=== PATIENT | male | born 1945 | race Caucasian/White ===

== ENCOUNTER → 2022-11-21 09:19 | Outpatient (BNVA) | payer MEDICARE, SELFPAY | PROVIDERS: PCP Family Medicine; Visit Provider Family Medicine | DX: R73.9 Hyperglycemia, unspecified (principal); N52.9 Male erectile dysfunction, unspecified; E78.5 Hyperlipidemia, unspecified; I10 Essential (primary) hypertension | CPT/HCPCS: 80053; 80061; 83036; 84439; 84443; 85025 ==

== ENCOUNTER → 2023-02-21 15:06 | Outpatient (BNVA) | payer MEDICARE, SELFPAY | PROVIDERS: PCP Family Medicine; Referring Provider Family Medicine; Visit Provider Dermatology | DX: C44.629 Squamous cell carcinoma of skin of left upper limb, including shoulder (principal); L81.9 Disorder of pigmentation, unspecified; L57.0 Actinic keratosis; L81.4 Other melanin hyperpigmentation; L57.8 Other skin changes due to chronic exposure to nonionizing radiation; Z85.828 Personal history of other malignant neoplasm of skin | CPT/HCPCS: 11102; 11103; 17000; 17003; 99203 ==

== ENCOUNTER → 2023-03-08 14:01 | Outpatient (BNVA) | payer MEDICARE, SELFPAY | PROVIDERS: PCP Family Medicine; Visit Provider Family Medicine | DX: M79.652 Pain in left thigh (principal) | CPT/HCPCS: 73502; 73552 ==

== ENCOUNTER → 2023-03-29 09:12 | Outpatient (BNVA) | payer MEDICARE, SELFPAY | PROVIDERS: PCP Family Medicine; Visit Provider Dermatology | DX: C44.629 Squamous cell carcinoma of skin of left upper limb, including shoulder (principal) | CPT/HCPCS: 11602; 12032 ==

== ENCOUNTER → 2023-03-30 10:40 | Outpatient (BNVA) | payer MEDICARE, SELFPAY | PROVIDERS: PCP Family Medicine; Referring Provider Family Medicine; Visit Provider Physician Assistant | DX: M47.26 Other spondylosis with radiculopathy, lumbar region; M51.36 Other intervertebral disc degeneration, lumbar region | CPT/HCPCS: 72110; 99203 ==

== ENCOUNTER 2023-04-21 12:11 | Emergency (ER) | payer MEDICARE, SELFPAY ==
[2023-04-21 12:18] VITALS: BP 159/78; PULSE 72; RESP 18; TEMP 36.4; O2SAT 98; BMI 23.6
[2023-04-21 15:21] VITALS: BP 123/71; PULSE 72; RESP 16; TEMP 36.8; O2SAT 96
[2023-04-21 15:57] VITALS: BP 140/70; PULSE 67; RESP 18; O2SAT 99
--- NOTE | 2023-04-21 16:00 | W.ED.BACK ---
Documented by User: Tonja Covarrubias PA-C 04/21/23 16:08 HPI - Back Pain/Injury General: Chief Complaint: Back Pain/Injury Stated Complaint: scheduled mri, back pain Time Seen by Provider: 04/21/23 15:47 Source: patient Mode of arrival: ambulatory Limitations: no limitations History of Present Illness: 77-year-old male presents to the ER today for worsening low back pain. Patient reports he is currently being worked up for this pain. He is scheduled for an MRI on Monday. Patient reports yesterday the pain worsened to the point where he was shuffling trying to walk. Patient reports this was the worst that had gotten so far. He had a prescription for prednisone at home so we did go ahead and start that this morning. Patient reports this morning the pain was about the same. He took the prednisone and reports by the time he got to the ER the gait had improved some however he still has discomfort. Patient denies any loss of bowel or bladder control. Denies any numbness or tingling radiating down his legs. Patient reports most of his pain is located in the hip area and bilateral upper legs. Patient has also taken Advil at home with minimal improvement. He does not have anything stronger for pain at this time. Patient was told by specialist that he likely has degenerative discs, possibly bulging discs pressing on nerves. Review of Systems General: Reports: 10 or more systems reviewed and unremarkable except in HPI and below PFSH ED PFSH: Medical History Hyperlipidemia Hypertension Family History Other Cancer Denies family history of Diabetes CAD (coronary artery disease) Social History Smoking and tobacco status: never smoked Alcohol intake: current Alcohol intake frequency: holidays/special occasions only Physical Exam Const: COMMON NORMALS: no acute distress, average body habitus, patient oriented x3, no limitations, healthy appearing, alert and well nourished HENMT: COMMON NORMALS: normocephalic, atraumatic, external ears normal, Normal nasal mucous membranes and turbinates present and moist oral mucous membranes HEAD & SCALP: normocephalic and atraumatic NOSE: Normal nasal mucous membranes and turbinates present EXTERNAL EAR: Yes external ears normal Eye: COMMON NORMALS: conjunctivae normal CONJUNCTIVA: Yes conjunctivae normal Resp: COMMON NORMALS: normal respiratory effort EFFORT & INSPECTION: Yes able to speak in complete sentences Cardio: COMMON NORMALS: regular rate and regular rhythm RATE: regular rate RHYTHM: regular rhythm Back/Pelvis: OTHER: Patient has tenderness across low back/bilateral SI joints. He is noted to be slow with gait however no major abnormalities noted. No neurological deficits noted. Extremity: COMMON NORMALS: normal to inspection, full ROM and no pedal edema Neuro: COMMON NORMALS: patient oriented x3 SENSORIUM/ORIENTATION: Yes alert OTHER: No neurological deficits noted. Psych: COMMON NORMALS: mental status grossly normal, Normal thought process present and cooperative THOUGHT PROCESS: Normal thought process present Skin: COMMON NORMALS: no rashes or lesions noted and no wounds GENERAL SKIN EXAM: no rashes or lesions noted Course ED course: Patient presents to the ER for worsening low back pain. Patient is currently being worked up for degenerative disc disease and possibly bulging disks. He has an MRI scheduled for Monday. The pain got to where he was having trouble walking yesterday. He did start the prednisone at home this morning. Patient appears uncomfortable but not in severe pain in the ER. He is ambulating okay just slowly here. No neurological deficits reported or noted. Patient has had basic imaging but waiting on more specific imaging of an MRI on Monday. Vital Signs: Vital signs: Vital Signs Temperature 98.3 F 04/21/23 15:21 Pulse Rate 62 04/21/23 16:02 Respiratory Rate 18 04/21/23 16:02 Blood Pressure 134/73 04/21/23 16:02 Pulse Oximetry 98 04/21/23 16:02 Oxygen Delivery Me thod Room Air 04/21/23 15:57 MDM - Back Pain/Injury Medical Decision Making Pt does not have any neurological deficits or concerns for acute neurological injury. I discussed with patient that we do not do MRIs through the ER. He should keep his appointment for Monday. I will give patient something stronger for pain than the Advil as it did not seem to be helping. He should finish the prednisone as previously prescribed. We will also do a muscle relaxer. I discussed with patient that this can cause drowsiness so there is concern for increased fall risk. Patient reports if he takes that he will make sure to have someone at home to help him. Patient will also be given tramadol for pain to use as needed for severe pain. If the pain is mild or moderate I recommend Tylenol or ibuprofen. We discussed that if he has any neurological deficits or loss of bowel or bladder control he needs to return to the ER emergently. Otherwise follow-up with his specialist after Monday. Patient verbalized understanding and was in agreement with the treatment plan. Critical Care Time Critical Care Time: Critical Care Time: No Discharge Plan Discharge Patient Disposition: Home Clinical Impression: Acute exacerbation of chronic low back pain Condition: Stable Prescriptions: New methocarbamol 750 mg tablet 750 mg PO Q8H Qty: 21 0RF tramadol 50 mg tablet 50 mg PO TID PRN (Reason: pain) 6 Days Qty: 15 0RF No Action aspirin [Adult Aspirin Regimen] 81 mg tablet,delayed release (DR/EC) 81 mg PO DAILY omega 1-etp-baa-fish oil [Fish Oil] 60-90-500 mg capsule 1 cap PO DAILY cholecalciferol (vitamin D3) 25 mcg (1,000 unit) capsule 50 mcg PO DAILY vitamin B complex Capsule 1 cap PO DAILY Men's 50 Plus Multivitamin 400-20-370 mcg tablet 1 tab PO DAILY metformin 500 mg tablet 500 mg PO BID Qty: 180 3RF atorvastatin 40 mg tablet 40 mg PO DAILY Qty: 90 3RF losartan 25 mg tablet 25 mg PO DAILY Qty: 90 3RF prednisone 20 mg tablet 20 mg PO DAILY Qty: 15 0RF Rx Instructions: 60 mg X 3 days 40 mg X 2 days 20 mg X 2 days sildenafil 50 mg tablet 50 mg PO .EVENING Discharge Orders: Discharge ED (Routine); Ordered 04/21/23 Ordered By: Tonja Covarrubias Referrals: Donovan Ortiz DO [Primary Care Provider] - Discharge Diet: Usual diet Discharge Activity: Increase activity as tolerated Patient Instructions: Chronic Back Pain (DC), Opioid Safety, Pain Management Activity Restrictions/Additional Instructions: Continue taking prednisone as prescribed at home. Take methocarbamol muscle relaxer as needed but be cautious of drowsiness. Use tramadol for severe pain. For less severe pain okay to alternate Tylenol and ibuprofen. Keep MRI appointment on Monday and then follow-up with specialist. Return to the ER with new or worsening symptoms including any neurological deficits or loss of bowel or bladder control. 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 Fwd Documented by User: Tam Sanchez DO 04/21/23 17:14 HPI - Back Pain/Injury General: Chief Complaint: Back Pain/Injury Stated Complaint: scheduled mri, back pain Time Seen by Provider: 04/21/23 15:47 PFSH ED PFSH: Medical History Hyperlipidemia Hypertension Family History Other Cancer Denies family history of Diabetes CAD (coronary artery disease) Social History Smoking and tobacco status: never smoked Alcohol intake: current Alcohol intake frequency: holidays/special occasions only Course Vital Signs: Vital signs: Vital Signs Temperature 98.3 F 04/21/23 15:21 Pulse Rate 62 04/21/23 16:02 Respiratory Rate 18 04/21/23 16:02 Blood Pressure 134/73 04/21/23 16:02 Pulse Oximetry 98 04/21/23 16:02 Oxygen Delivery Me thod Room Air 04/21/23 15:57 MDM - Back Pain/Injury Medical Decision Making Pt does not have any neurological deficits or concerns for acute neurological injury. I discussed with patient that we do not do MRIs through the ER. He should keep his appointment for Monday. I will give patient something stronger for pain than the Advil as it did not seem to be helping. He should finish the prednisone as previously prescribed. We will also do a muscle relaxer. I discussed with patient that this can cause drowsiness so there is concern for increased fall risk. Patient reports if he takes that he will make sure to have someone at home to help him. Patient will also be given tramadol for pain to use as needed for severe pain. If the pain is mild or moderate I recommend Tylenol or ibuprofen. We discussed that if he has any neurological deficits or loss of bowel or bladder control he needs to return to the ER emergently. Otherwise follow-up with his specialist after Monday. Patient verbalized understanding and was in agreement with the treatment plan. Chart reviewed and patient discussed with midlevel. Agree with assessment and plan. Discharge Plan Discharge Patient Disposition: Home Clinical Impression: Acute exacerbation of chronic low back pain Condition: Stable Prescriptions: New methocarbamol 750 mg tablet 750 mg PO Q8H Qty: 21 0RF tramadol 50 mg tablet 50 mg PO TID PRN (Reason: pain) 6 Days Qty: 15 0RF No Action aspirin [Adult Aspirin Regimen] 81 mg tablet,delayed release (DR/EC) 81 mg PO DAILY omega 3-bxg-tkg-fish oil [Fish Oil] 60-90-500 mg capsule 1 cap PO DAILY cholecalciferol (vitamin D3) 25 mcg (1,000 unit) capsule 50 mcg PO DAILY vitamin B complex Capsule 1 cap PO DAILY Men's 50 Plus Multivitamin 400-20-370 mcg tablet 1 tab PO DAILY metformin 500 mg tablet 500 mg PO BID Qty: 180 3RF atorvastatin 40 mg tablet 40 mg PO DAILY Qty: 90 3RF losartan 25 mg tablet 25 mg PO DAILY Qty: 90 3RF prednisone 20 mg tablet 20 mg PO DAILY Qty: 15 0RF Rx Instructions: 60 mg X 3 days 40 mg X 2 days 20 mg X 2 days sildenafil 50 mg tablet 50 mg PO .EVENING Discharge Orders: Discharge ED (Routine); Ordered 04/21/23 Ordered By: Tonja Covarrubias Referrals: Donovan Ortiz DO [Primary Care Provider] - Discharge Diet: Usual diet Discharge Activity: Increase activity as tolerated Patient Instructions: Chronic Back Pain (DC), Opioid Safety, Pain Management Activity Restrictions/Additional Instructions: Continue taking prednisone as prescribed at home. Take methocarbamol muscle relaxer as needed but be cautious of drowsiness. Use tramadol for severe pain. For less severe pain okay to alternate Tylenol and ibuprofen. Keep MRI appointment on Monday and then follow-up with specialist. Return to the ER with new or worsening symptoms including any neurological deficits or loss of bowel or bladder control. 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
[2023-04-21 16:02] VITALS: BP 134/73; PULSE 62; RESP 18; O2SAT 98
== END 2023-04-21 16:08 | disposition home or self-care (01) ==
PROVIDERS: Emergency Provider Physician Assistant; PCP Family Medicine
DX: G89.29 Other chronic pain (principal); M54.50 Low back pain, unspecified; Z79.82 Long term (current) use of aspirin; Z79.84 Long term (current) use of oral hypoglycemic drugs; E78.5 Hyperlipidemia, unspecified; I10 Essential (primary) hypertension
CPT/HCPCS: 99283

== ENCOUNTER 2023-04-25 10:32 | Outpatient (CLI) | payer MEDICARE, SELFPAY ==
--- NOTE | 2023-04-25 11:00 | MR_ITS ---
WS: [id number] MRI LUMBAR SPINE NONCONTRAST TECHNIQUE: Sagittal T1, T2 and STIR imaging. Axial T1 and T2 imaging. CLINICAL INFORMATION: left thigh pain COMPARISON: None. FINDINGS: Mild lumbar curve. No acute compression. L1-L2: Mild annular bulging. Narrowing of the subarticular recess bilaterally. Mild facet arthropathy . Foramen are patent. L2-L3: Mild annular bulging. Narrowing of the subarticular recess bilaterally. Mild facet arthropathy . Mild RIGHT foraminal narrowing with a small RIGHT foraminal protrusion. L3-L4: Shallow central disc protrusion with moderate to severe central canal stenosis. Impingement tr aversing L4 nerve roots bilaterally. Moderate facet arthropathy. Mild LEFT greater than RIGHT foramin al narrowing. L4-L5: Mild annular bulging. Slight impingement traversing L5 nerve roots bilaterally LEFT greater th an RIGHT. Moderate facet arthropathy. Mild LEFT greater than RIGHT foraminal narrowing. L5-S1: Mild annular bulging. Mild bilateral foraminal narrowing. Mild to moderate facet arthropathy. Tiny incidental RIGHT renal cyst. Visualized pelvic bony structures: Normal. Paravertebral soft tissues: Normal. IMPRESSION: 1. Moderate to severe central canal stenosis L3-4 with impingement traversing L4 nerve roots bilater ally. Moderate to advanced arthropathy at this level. 2. Annular bulging L1-2 and L2-3 with impingement on the subarticular recess bilaterally worse RIGHT L2-3. 3. Small RIGHT foraminal protrusion L2-3 with mild RIGHT foraminal narrowing. 4. Annular bulge L4-5 with slight impingement traversing LEFT greater than RIGHT L5 nerve roots. Mil d facet arthropathy. Mild LEFT foraminal narrowing at this level. 5. Mild bilateral L5-S1 foraminal narrowing.
== END 2023-04-25 10:33 | disposition home or self-care (01) ==
PROVIDERS: PCP Family Medicine; Visit Provider Physician Assistant
DX: M48.061 Spinal stenosis, lumbar region without neurogenic claudication (principal); M51.26 Other intervertebral disc displacement, lumbar region; M79.652 Pain in left thigh
CPT/HCPCS: 72148

== ENCOUNTER → 2023-05-02 10:19 | Outpatient (BNVA) | payer MEDICARE, SELFPAY | PROVIDERS: PCP Family Medicine; Visit Provider Physician Assistant | DX: M48.062 Spinal stenosis, lumbar region with neurogenic claudication | CPT/HCPCS: 36415; 72100; 80053; 81003; 85025; 99214 ==

== ENCOUNTER → 2023-05-10 13:22 | Day surgery (SDC) | payer MEDICARE, SELFPAY ==
[2023-05-09 11:29] VITALS: BMI 23.6
[2023-05-10] VITALS (12 sets, daily range): BP systolic 135–171; BP diastolic 74–92; PULSE 45–74; RESP 11–20; TEMP 36.1–36.9; O2SAT 95–100; BMI 23.6
--- NOTE | 2023-05-10 | XR_ITS ---
WS: [id number] Lumbar spine, C-arm fluoroscopy views, 05/10/2023 Clinical Data: [facility] PICS Comparison: Lumbar spine, 05/02/2023 Findings: Dr. Mckeon performed a lumbar decompression. Impression: Lumbar decompression.
[2023-05-10] MEDS: sodium chloride 0.9% 1,000 ML 30 ML IV (14:00)
[2023-05-10] MEDS: HYDROmorphone 1 mg/mL INJ 1 mL 0.5 MG IVP (14:17)
--- NOTE | 2023-05-10 14:28 | ANES.PREANE2 ---
Pre-Anesthetic Assessment Height/Weight: Height 1.73 m Weight 70.307 kg Temp Pulse Resp BP Pulse Ox O2 Del Method 98.4 F 74 16 135/84 99 Room Air 05/10/23 13:49 05/10/23 13:49 05/10/23 13:49 05/10/23 13:49 05/10/23 13:49 05/10/23 13:49 Preop Diagnosis: Lumbar stenosis with neurogenic claudication Operation Date: 05/10/23 15:20 Proposed Procedures p L3-4(Standing on Left)(Bilateral) - Kaden Mckeon, Familial anesthetic complications: none Was Beta Azael taken within 24 hours: N/A Was Clonidine taken within 24 hours: N/A Last intake: Intake Last Liquid Date 05/09/23 Last Liquid Time 20:00 Last Solid Date 05/09/23 Last Solid Time 20:00 Social No alcohol and No tobacco Exam alert, oriented x 3, clear to auscultation bilaterally and regular rate & rhythm Airway Submandibular: within normal limits Cervical ROM: within normal limits Mallampati: Class II Dentition: chipped CV/HEM Hypertension Metabolic Diabetes Mellitus and Hyperlipidemia [facility] Lower Back Pain and Osteoarthritis/DJD Anesthetic Plan ASA status: 3 Anesthesia: General Medications/Allergies Home Medications Medication Instructions Recorded Confirmed Last Taken Type aspirin 81 mg tablet,delayed 81 mg PO DAILY 08/22/22 05/10/23 05/04/23 History release (Adult Aspirin Regimen) cholecalciferol (vitamin D3) 25 50 mcg PO DAILY 08/22/22 05/10/23 05/09/23 History mcg (1,000 unit) capsule xdwplaagfxnv-owo-yuxaz acid-vit 1 tab PO DAILY 08/22/22 05/10/23 05/09/23 History K-lycop 400 mcg-20 mcg-370 mcg tablet (Men's 50 Plus Multivitamin) omega 3-hdw-oun-fish oil 60 mg-90 1 cap PO DAILY 08/22/22 05/10/23 05/04/23 History mg-500 mg capsule (Fish Oil) vitamin B complex 1 cap PO DAILY 08/22/22 05/10/23 05/09/23 History metformin 500 mg tablet 500 mg PO BID #180 tabs 02/10/23 05/10/23 05/08/23 Rx atorvastatin 40 mg tablet 40 mg PO DAILY #90 tabs 02/28/23 05/10/23 05/08/23 Rx losartan 25 mg tablet 25 mg PO DAILY #90 tabs 02/28/23 05/10/23 05/09/23 Rx hydrocodone 5 mg-acetaminophen 325 1 tab PO Q8H PRN pain 5 days #15 05/05/23 05/10/23 05/10/23 Rx mg tablet tabs Allergies Allergy/AdvReac Type Severity Reaction Status Date / Time No Known Allergies Allergy Verified 05/10/23 13:48 Current Medications Generic Name Dose Route Start Last Admin Trade Name Freq PRN Reason Stop Dose Admin Hydromorphone HCl 0.5 mg 05/10/23 13:35 05/10/23 14:17 Hydromorphone 1 Mg/Ml Inj 1 Ml IVP 0.5 mg ONCE PRN Administration For preop pain/anxiety Sodium Chloride 1,000 mls @ 30 mls/hr 05/10/23 13:45 05/10/23 14:00 Sodium Chloride 0.9% IV 05/11/23 13:44 30 mls/hr .Q24H SIOBHAN Administration PFSH Anesthesia Medical History Hyperlipidemia Hypertension Family History Other Cancer Denies family history of Diabetes CAD (coronary artery disease) Social History Smoking and tobacco status: never smoked Alcohol intake: current Alcohol intake frequency: holidays/special occasions only Data Anesthesia Cardiac Studies: No Data to Display
--- NOTE | 2023-05-10 14:35 | W.PM.OPSUD ---
Surgery/Procedure H&P Update DATE OF PROCEDURE: May 10, 2023 DATE H&P PERFORMED: 05/05/23 H&P UPDATE INFORMATION: I have reviewed H&P completed within last 30 days, I have examined patient prior to procedure and No changes to prior documentation PREOP DIAGNOSIS: Lumbar stenosis with neurogenic claudication PLANNED PROCEDURE: Operation Date: 05/10/23 15:20 Proposed Procedures p L3-4(Standing on Left)(Bilateral) - Kaden Mckeon DO
[2023-05-10] MEDS: ceFAZolin 2,000 MG in sodium chloride 0.9% (plus) 50 ML 100 MG IV (14:42)
[2023-05-10] MEDS: lidocaine-epi 2% 20 mL INJ INJECTION (15:09)
--- NOTE | 2023-05-10 15:51 | PM.OP ---
Operative Report Date of procedure: May 10, 2023 Pre-op diagnosis: Lumbar stenosis with neurogenic claudication Post-op diagnosis: same Procedure done: L3-4 laminectomy with partial facetectomies Surgeon: Kaden Mckeon DO Global Regulatory Affairs Manager: Rc Mills Global Regulatory Affairs Manager: The surgical garment fitter, Rc Mills, SHARLENE was needed for his expertise under the microscope. He was important and necessary throughout the procedure to complete in a safe and timely manner. He assisted with patient positioning prepping and draping tissue retraction suctioning of the operative field protection of the dural sac and tissue closure Estimated blood loss (mL): 20 Procedure: L3-4 laminectomy with partial facetectomies Patient is brought to the operative suite. After undergoing anesthesia they are placed in the prone position. All areas of impingement are well padded. Patient is then prepped and draped in the normal sterile fashion. A skin incision is made over the L3/4 level. This is confirmed under c-arm guidance. A series of dilators are passed and the tubular retractor is docked on the L3 lamina. A bovie is used to clear the soft tissue off the lamina and the L 3/4 facet joint. A high speed laron is then used to perform the laminectomy and take down the medial aspect of the L 3/4 facet joint. A kerrison rongeure was then used to take down the remaining lamina and smooth the edged of the laminectomy up to the point where the ligamentum flavum attaches. Attention was then brought to the medial aspect of the facet joint. The remaining medial aspect of the superior and inferior aspect of the facet joint were taken down with the kerrison from the pedicle of L3 to L 4. The facet joint had significant hypertrophy. Attention was then brought to the Ligamentum Flavum. The ligament was taken down from the lamina of L3 to L4 and out medially to the remaining facet joint. The ligament was thick. The dura was then exposed. The dura was in good repair. The L3 nerve was then traced with a curette out the L3/4 foramen and found to be adequately decompressed. The L4 nerve was traced with a curette around the L4 pedicle. The lateral recess was opened with a kerrison helping to further decompress the L4 nerve. The tubular retractor was then tilted to the contralateral side. The bovie was used to take down the soft tissue on the spinous process. The high speed laron was used to take down the spinous process and then the contralateral lamina of L3. The kerrison rongeur was used to take down the remaining lamina to the point where the ligamentum flavum attached and the ligamentum flavum was taken down from L3 to L4. The kerrison rongeur was then used to reach across and take down the medial aspect of the contralateral L3/4 facet joint.The currete was used to trace the contralateral L3 nerve out the L3/4 foramen to make sure it was decompressed adequatesly and the L4 was traced around the L4 pedicle. The lateral recess was opened further with the kerrison to ensure the L4 is adequately decompressed. Wound is then irrigated copiously with saline and surgiflo is used to stop any bleeding. The tubular retractor is removed and the wound is closed with vicryl and monocryl suture. Glue is then used to protect the wound. A sterile dressing is then placed. Patient was then placed in the supine position and transferred to the PACU in stable condition.
--- NOTE | 2023-05-10 16:39 | ANE.PACU2 ---
Inpatient post-anesthesia follow up: Airway intact: Yes Vital signs: Temperature 97.6 F Pulse Rate 52 Respiratory Rate 18 Blood Pressure 153/80 Pulse Oximetry 96 Oxygen Delivery Me thod Room Air Oxygen Flow Rate 6 Fraction of Inspir ed Oxygen Hydration adequate: Yes Nausea and vomiting: No Pain level: 3 Mental status: Baseline
[2023-05-11 12:51] LABS: Glucose Point of Care 127 mg/dL (70-110)
== END | disposition home or self-care (01) ==
PROVIDERS: PCP Family Medicine; Visit Provider Orthopaedic Surgery
PROC: (CPT 63005; principal; 2023-05-10 15:10)
DX: M48.062 Spinal stenosis, lumbar region with neurogenic claudication (principal); I10 Essential (primary) hypertension; E11.9 Type 2 diabetes mellitus without complications; E78.5 Hyperlipidemia, unspecified; Z79.82 Long term (current) use of aspirin
CPT/HCPCS: 63047; 36416; 72020; 76000; 82962; J0690; J1100; J1170; J2405; J2704; J2710; J3010; J3490; J7030

== ENCOUNTER 2023-05-12 07:53 | Emergency (ER) | payer MEDICARE, SELFPAY ==
[2023-05-12 08:00] VITALS: BP 137/76; PULSE 82; RESP 18; TEMP 36.6; O2SAT 95; BMI 23.6
[2023-05-12 08:09] VITALS: BP 137/76; PULSE 77; RESP 18; O2SAT 96
--- NOTE | 2023-05-12 08:26 | ED_ITS ---
HPI - Back Pain/Injury General: Chief Complaint: Back Pain/Injury Stated Complaint: pain in both legs anf back Time Seen by Provider: 05/12/23 07:55 Source: patient and family Mode of arrival: ambulatory Limitations: no limitations History of Present Illness: Patient presents emergency department today brought by his for evaluation treatment of continued leg pain after spinal decompression surgery. Patient has a chronic history of lumbar radiculopathy and on 05/10 had decompression of the L3/L4 region by Dr. Mckeon. Patient reports he continues to have pain-primarily in the left leg-similar to the pain he had prior to his surgery. He denies any falls. He has not had any fever. Patient still has control of bowel and bladder function. patient is ambulatory and weightbearing but moves very slowly and does indicate discomfort. Patient reports this is the same pain he had prior to surgery and does not indicate any numbness into the lower extremities. Patient still has full mobility distally in the lower extremities bilaterally. Patient currently has his bandaging in place from postop. No signs of erythema or swelling to the site. No signs of draining through the bandaging. No signs of blood. Patient was given Carroll 12/14/2024 with instructions to take 1-2 every 4-6 hours. Patient's has been documenting his daily activities since postop and appears that he takes 1-2 Carroll every 4 hours or less. Patient had 2 Carroll less than 2 hours prior to arrival in the ER. Patient's states that she took him to the outpatient surgery center and they indicated they needed to go to Dr. Mckeon's office. This was at approximately 745 this morning and the office was not open. They present here to the emergency department for his pain. Review of Systems General: Reports: 10 or more systems reviewed and unremarkable except in HPI and below PFSH ED PFSH: Medical History Hyperlipidemia Hypertension Family History Other Cancer Denies family history of Diabetes CAD (coronary artery disease) Social History Smoking and tobacco status: never smoked Alcohol intake: current Alcohol intake frequency: holidays/special occasions only Physical Exam Const: COMMON NORMALS: no acute distress (Patient is able to answer his own history. He is smiling in the bed. He i), patient oriented x3 and alert HENMT: COMMON NORMALS: normocephalic, atraumatic and hearing grossly normal bilaterally HEAD & SCALP: normocephalic and atraumatic Eye: COMMON NORMALS: Equal, round and reactive pupils present, EOMs intact bilaterally and conjunctivae normal CONJUNCTIVA: Yes conjunctivae normal PUPIL: Yes Equal, round and reactive pupils present Neck/C-Spine: COMMON NORMALS: full ROM and no JVD Lymph: LYMPHATIC: no lymphadenopathy noted Resp: COMMON NORMALS: normal respiratory effort, No retractions and No use of accessory muscles Cardio: COMMON NORMALS: no JVD and regular rate RATE: regular rate Extremity: NARRATIVE EXTREMITY EXAM: Patient with ability to weight-bear and ambulate independently here in the emergency department though it is very slow and noticeably uncomfortable for the patient. Patient with flexion extension capabilities of the toes. Neuro: COMMON NORMALS: patient oriented x3 SENSORIUM/ORIENTATION: Yes alert OTHER: No neurological deficit noted in the lower extremities bilaterally. Psych: COMMON NORMALS: mental status grossly normal, Normal thought process present, cooperative and normal affect THOUGHT PROCESS: Normal thought process present Skin: COMMON NORMALS: no rashes or lesions noted and turgor normal NARRATIVE SKIN EXAM: Surgical incision site is covered with bandaging however, no surrounding erythema, swelling, or draining through the bandaging appreciated. GENERAL SKIN EXAM: no rashes or lesions noted and turgor normal Course Vital Signs: Vital signs: Vital Signs Temperature 97.9 F 05/12/23 08:00 Pulse Rate 68 05/12/23 12:14 Respiratory Rate 18 05/12/23 12:14 Blood Pressure 113/62 05/12/23 12:14 Pulse Oximetry 97 05/12/23 12:14 Oxygen Delivery Me thod Room Air 05/12/23 12:14 MDM - Back Pain/Injury Medical Decision Making Patient presents today with no acute neurological deficit concerning for spinal injury from his surgery. Patient admits that this pain is the same as his chronic pain that he had before going to surgery. was very concerned that he was pain-free right after surgery and his pain is returned. We discussed the difference in OR pain medication provided during surgery versus at home oral medications provided to patient's. Given that the patient appears stable without any acute postoperative concerns, I did reach out to Dr. Mckeon to discuss. He indicated that the patient may not notice improvement in his chronic pain for up to 12 weeks. However, he was willing to change the patient's at home pain medication to something stronger for now. Discussed all this with the patient including expectation of continued pain for a while. They had many questions about their discharge instructions including how long t hey had to adhere to restrictions. I explained the need to adhere to the restrictions until they have their postop follow-up appointment where they will be reassessed and new limitations or return to activity discussed at that time. Explained to them that Dr. Mckeon had prescribed stronger pain medication which can be picked up at the pharmacy. Encouraged them to reach out to their surgeons office for questions and concerns. Patient verbalized understanding and agreement to treatment plan. Differential Diagnosis Likely lumbar radiculopathy, sciatica and strain of lumbar region; Unlikely pyelonephritis, AAA or discitis No radiology studies performed this visit Discharge Plan Discharge Patient Disposition: Home Clinical Impression: Lumbar radiculopathy, Post-operative state Condition: Stable Prescriptions: No Action aspirin [Adult Aspirin Regimen] 81 mg tablet,delayed release (DR/EC) 81 mg PO DAILY omega 5-run-zje-fish oil [Fish Oil] 60-90-500 mg capsule 1 cap PO DAILY cholecalciferol (vitamin D3) 25 mcg (1,000 unit) capsule 50 mcg PO DAILY vitamin B complex Capsule 1 cap PO DAILY Men's 50 Plus Multivitamin 400-20-370 mcg tablet 1 tab PO DAILY metformin 500 mg tablet 500 mg PO BID Qty: 180 3RF atorvastatin 40 mg tablet 40 mg PO DAILY Qty: 90 3RF losartan 25 mg tablet 25 mg PO DAILY Qty: 90 3RF oxycodone 5 mg tablet 5 - 10 mg PO Q4H PRN (Reason: pain) 7 Days Qty: 40 0RF oxycodone [OxyContin] 20 mg tablet,oral only,ext.rel.12 hr 20 mg PO Q12H 7 Days Qty: 14 0RF hydrocodone-acetaminophen 5-325 mg tablet 1 - 2 tab PO .Q4-6H Qty: 40 0RF sildenafil 50 mg tablet 50 mg PO QPM Discharge Orders: Discharge ED (Routine); Ordered 05/12/23 Ordered By: Anjelica Dozier Referrals: Donovan Ortiz DO [Primary Care Provider] - Discharge Diet: As Directed Discharge Activity: Limit activity as instructed Patient Instructions: Opioid Safety, Pain Management Activity Restrictions/Additional Instructions: After speaking with Dr. Mckeon, he has changed your pain medication. It appears your preferred pharmacy is listed as the hospital pharmacy and he has sent in 2 prescriptions. Stop taking the hydrocodone at this time. We recommend keeping all upcoming appointments for your postop rechecks. Watch for any bowel or bladder dysfunction, numbness into 1 or both of the lower extremities. If these agree need to be seen in the ER. Coding Level of Care Code ED Train Caller for Asuncion Rojas
[2023-05-12 09:06] VITALS: BP 110/67; PULSE 72; RESP 16; O2SAT 93
[2023-05-12] MEDS: HYDROcodone-acetaminophen 5-325 mg Tablet 2 TAB PO (10:50)
[2023-05-12 12:14] VITALS: BP 113/62; PULSE 68; RESP 18; O2SAT 97
== END 2023-05-12 13:04 | disposition home or self-care (01) ==
PROVIDERS: Emergency Provider Physician Assistant; PCP Family Medicine
DX: M54.16 Radiculopathy, lumbar region (principal); Z98.890 Other specified postprocedural states; Z79.82 Long term (current) use of aspirin; E78.5 Hyperlipidemia, unspecified; I10 Essential (primary) hypertension
CPT/HCPCS: 99283

== ENCOUNTER 2023-05-13 10:52 | Emergency (ER) | payer MEDICARE, SELFPAY ==
[2023-05-13 10:57] VITALS: BP 135/65; PULSE 42; RESP 20; TEMP 36.8; O2SAT 99; BMI 23.6
[2023-05-13 11:51] VITALS: RESP 16; O2SAT 94
[2023-05-13] MEDS: dexamethasone 10 mg/mL INJ IVP (11:51)
[2023-05-13] MEDS: morphine 4 mg/mL SDV 1 mL IVP (11:51)
[2023-05-13 11:53] VITALS: BP 135/65; PULSE 81; RESP 16; O2SAT 94
[2023-05-13 12:20] VITALS: BP 115/58; PULSE 45; RESP 16; O2SAT 96
[2023-05-13 12:46] VITALS: BP 115/58; PULSE 45; RESP 16; O2SAT 96
--- NOTE | 2023-05-13 12:55 | W.ED.EXTPRO ---
HPI - Extremity Problem General: Chief complaint: Extremity Problem,Nontraumatic Stated complaint: LEFT LEG PAIN Time Seen by Provider: 05/13/23 10:57 Source: patient History of Present Illness: 77-year-old male presents emergency room complaining of low back pain and left radicular leg pain. Earlier this week he had a partial laminectomy and facetectomy along with discectomy by Dr. Mckeon. He was seen yesterday increase his pain medications but has not had them filled. MD Complaint: extremity pain Associated symptoms: Deny arthralgias, chest pain, fever(s), myalgias, rash or short of breath Review of Systems Const: Denies: fever(s) or chills ENMT: Denies: throat pain, ear or mastoid pain, nasal discharge or nasal congestion Card: Denies: chest pain Resp: Denies: dyspnea, productive cough or non-productive cough GI: Denies: abdominal pain, nausea, vomiting, hematemesis, coffee ground emesis, diarrhea, constipation, bloating, hematochezia or melena : Denies: flank pain, dysuria, urinary frequency or urinary urgency Musc: Reports: back pain and extremity pain Skin/Breast: Denies: rash PFSH ED PFSH: Medical History Hyperlipidemia Hypertension Family History Other Cancer Denies family history of Diabetes CAD (coronary artery disease) Social History Smoking and tobacco status: never smoked Alcohol intake: current Alcohol intake frequency: holidays/special occasions only Physical Exam Const: GENERAL APPEARANCE: cooperative and comfortable ORIENTATION/CONSCIOUSNESS: Yes awake, Yes oriented to person, Yes oriented to place and Yes oriented to time HENMT: COMMON NORMALS: normocephalic, atraumatic and hearing grossly normal bilaterally HEAD & SCALP: normocephalic and atraumatic Resp: COMMON NORMALS: normal respiratory effort, No retractions, No use of accessory muscles and clear to auscultation bilaterally AUSCULTATION: clear to auscultation bilaterally Cardio: COMMON NORMALS: regular rate, regular rhythm and No murmurs present (Cardio) RATE: regular rate RHYTHM: regular rhythm GI: COMMON NORMALS: Soft to palpation and No hepatosplenomegaly present AUSCULTATION: Yes normoactive bowel sounds PALPATION: Yes Soft to palpation, No Tenderness to palpation present (GI), No Guarding due to palpation present (GI) and Yes No hepatosplenomegaly present : COMMON NORMALS: Yes no CVA tenderness BLADDER/KIDNEY EXAM: Yes no CVA tenderness Back/Pelvis: COMMON NORMALS: no CVA tenderness Extremity: COMMON NORMALS: normal to inspection, capillary refill normal, no clubbing, cyanosis or edema, no calf tenderness and no pedal edema Neuro: SENSORIUM/ORIENTATION: Yes oriented to person, Yes oriented to place and Yes oriented to time Skin: COMMON NORMALS: no rashes or lesions noted GENERAL SKIN EXAM: no rashes or lesions noted Course Vital Signs: Vital signs: Vital Signs Temperature 98.2 F 05/13/23 10:57 Pulse Rate 45 L 05/13/23 12:46 Respiratory Rate 16 05/13/23 12:46 Blood Pressure 115/58 05/13/23 12:46 Pulse Oximetry 96 05/13/23 12:46 Oxygen Delivery Me thod Room Air 05/13/23 10:57 MDM - Extremity (Nontraumatic) Medical Decision Making Patient has postlaminectomy syndrome. He has good strength dorsum plantar flex strength, normal sensation lower extremities no saddle paresthesias in his leg but he still has pain. I discussed with Dr. Mckeon. Unfortunately the patient did not picker and packer the long-acting oxycodone. He states he could not afford it we will switch him instead do a short acting oxycodone and have him do 10 mg scheduled 3 times a day and then 5 mg every 4-6 hours as needed for breakthrough pain. We will also put him on a steroid taper And Valium for muscle spasm. Discussed with Dr. Mckeon. Patient discharged home with those medications he should contact her care and as soon as he is able to follow-up through the office. No red flag symptoms at this time. Medical Records I reviewed the patient's medical records. Lab Data I reviewed the patient's lab results. No radiology studies performed this visit Discharge Plan Discharge Patient Disposition: Home Clinical Impression: Post laminectomy syndrome Condition: Stable Prescriptions: New prednisone 20 mg tablet 20 mg PO TID Qty: 15 0RF Rx Instructions: 1 p.o. 3 times daily x3 days, 1 p.o. twice daily x2 days, 1 p.o. daily x2 days Valium 5 mg tablet 5 mg PO Q8H PRN (Reason: muscle spasm) Qty: 20 0RF oxycodone 10 mg tablet 10 mg PO Q8H Qty: 15 0RF Narcan 4 mg/actuation spray,non-aerosol 4 mg intranasal Q2M PRN (Reason: opioid overdose) Qty: 2 0RF Rx Instructions: spray 1 dose into ONE nostril; alternate nostrils w each dose until help arrives Discontinued oxycodone [OxyContin] 20 mg tablet,oral only,ext.rel.12 hr 20 mg PO Q12H 7 Days Qty: 14 0RF hydrocodone-acetaminophen 5-325 mg tablet 1 - 2 tab PO .Q4-6H Qty: 40 0RF No Action aspirin [Adult Aspirin Regimen] 81 mg tablet,delayed release (DR/EC) 81 mg PO DAILY omega 6-vyy-txx-fish oil [Fish Oil] 60-90-500 mg capsule 1 cap PO DAILY cholecalciferol (vitamin D3) 25 mcg (1,000 unit) capsule 50 mcg PO DAILY vitamin B complex Capsule 1 cap PO DAILY Men's 50 Plus Multivitamin 400-20-370 mcg tablet 1 tab PO DAILY metformin 500 mg tablet 500 mg PO BID Qty: 180 3RF atorvastatin 40 mg tablet 40 mg PO DAILY Qty: 90 3RF losartan 25 mg tablet 25 mg PO DAILY Qty: 90 3RF oxycodone 5 mg tablet 5 - 10 mg PO Q4H PRN (Reason: pain) 7 Days Qty: 40 0RF sildenafil 50 mg tablet 50 mg PO QPM Discharge Orders: Discharge ED (Routine); Ordered 05/13/23 Ordered By: Tam Sanchez Referrals: Donovan Ortiz DO [Primary Care Provider] - Discharge Diet: Usual diet Discharge Activity: Limit activity as instructed Patient Instructions: Opioid Safety, Pain Management Activity Restrictions/Additional Instructions: Continue pain medications the you are prescribed yesterday at the steroid taper and the Valium as a muscle relaxer. I discussed your case with Dr. Mckeon he wishes to have you follow-up with him next week contact his office on Monday morning for follow-up appointment. Coding Level of Care Code ED Marine Consultant for Asuncion Rojas
== END 2023-05-13 12:49 | disposition home or self-care (01) ==
PROVIDERS: Emergency Provider Family Medicine; PCP Family Medicine
DX: M96.1 Postlaminectomy syndrome, not elsewhere classified (principal); Z79.82 Long term (current) use of aspirin; Z79.84 Long term (current) use of oral hypoglycemic drugs; E78.5 Hyperlipidemia, unspecified; I10 Essential (primary) hypertension
CPT/HCPCS: 96374; 96375; 99284; J1100; J2270

== ENCOUNTER → 2023-05-23 08:55 | Outpatient (BNVA) | payer MEDICARE, SELFPAY | PROVIDERS: PCP Family Medicine; Visit Provider Orthopaedic Surgery | DX: Z47.89 Encounter for other orthopedic aftercare (principal) | CPT/HCPCS: 99024 ==

== ENCOUNTER 2023-06-22 10:44 | Outpatient (CLI) | payer MEDICARE, SELFPAY ==
--- NOTE | 2023-06-22 10:53 | XR_ITS ---
WS: [id number] Right shoulder, 3 views, 06/22/2023 Clinical Data: M25.511 - Pain in right shoulder Comparison: None. Findings: No fractures or dislocations are seen. The AC joint shows mild osteoarthritis. The glenohumeral joint shows irregularity of the lesser tuberosity and also of the adjacent glenoid rim. There is a small c alcification in the soft tissue lateral to the humeral head which may represent calcific bursitis or tendinitis. The adjacent right clavicle, right scapula and ribs are normal. Impression: 1. 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 2. Possible calcific bursitis or tendinitis.
== END 2023-06-22 10:45 | disposition home or self-care (01) ==
PROVIDERS: PCP Family Medicine; Visit Provider Family Medicine
DX: M19.011 Primary osteoarthritis, right shoulder (principal)
CPT/HCPCS: 73030

== ENCOUNTER → 2023-08-18 08:56 | Outpatient (BNVA) | payer MEDICARE, SELFPAY | PROVIDERS: PCP Family Medicine; Referring Provider Family Medicine; Visit Provider Physician Assistant | DX: M75.41 Impingement syndrome of right shoulder (principal); M12.811 Other specific arthropathies, not elsewhere classified, right shoulder | CPT/HCPCS: 20610; 99203; J3301 ==

== ENCOUNTER → 2023-11-24 09:35 | Outpatient (BNVA) | payer MEDICARE, SELFPAY | PROVIDERS: PCP Family Medicine; Visit Provider Student in an Organized Health Care Education/Training Program | DX: M12.811 Other specific arthropathies, not elsewhere classified, right shoulder | CPT/HCPCS: 20610; 99213; J3301 ==

== ENCOUNTER → 2024-04-04 13:13 | Outpatient (BNVA) | payer MEDICARE, SELFPAY | PROVIDERS: PCP Family Medicine; Visit Provider Physician Assistant | DX: M12.811 Other specific arthropathies, not elsewhere classified, right shoulder (principal); M75.41 Impingement syndrome of right shoulder | CPT/HCPCS: 20610; 99213; J3301 ==

== ENCOUNTER → 2024-06-06 09:33 | Outpatient (BNVA) | payer MEDICARE, SELFPAY | PROVIDERS: PCP Family Medicine; Visit Provider Family Medicine | DX: I10 Essential (primary) hypertension (principal); E78.5 Hyperlipidemia, unspecified; R73.9 Hyperglycemia, unspecified | CPT/HCPCS: 80053; 80061; 83036; 84439; 84443; 85025 ==

== ENCOUNTER → 2024-07-09 14:08 | Outpatient (BNVA) | payer MEDICARE, SELFPAY | PROVIDERS: PCP Family Medicine; Visit Provider Physician Assistant | DX: M12.811 Other specific arthropathies, not elsewhere classified, right shoulder | CPT/HCPCS: 20610; 99213; J3301 ==

== ENCOUNTER → 2024-11-13 09:07 | Outpatient (BNVA) | payer MEDICARE, SELFPAY | PROVIDERS: PCP Family Medicine; Visit Provider Physician Assistant | DX: M12.811 Other specific arthropathies, not elsewhere classified, right shoulder (principal); M25.511 Pain in right shoulder | CPT/HCPCS: 20610; 73030; 99213; J3301; J9999 ==

== ENCOUNTER → 2025-02-25 15:06 | Outpatient (BNVA) | payer MEDICARE, SELFPAY | PROVIDERS: PCP Family Medicine; Visit Provider Physician Assistant | DX: M12.811 Other specific arthropathies, not elsewhere classified, right shoulder (principal) | CPT/HCPCS: 20610; 99213; J3301; J9999 ==

== ENCOUNTER → 2025-05-23 12:45 | Outpatient (BNVA) | payer MEDICARE, SELFPAY | PROVIDERS: PCP Family Medicine; Visit Provider Nurse Practitioner Family | DX: Z00.00 Encounter for general adult medical examination without abnormal findings (principal); E11.9 Type 2 diabetes mellitus without complications; I10 Essential (primary) hypertension | CPT/HCPCS: 80053; 80061; 82043; 83036; 84443; 85025 ==

== ENCOUNTER → 2025-06-03 15:00 | Outpatient (BNVA) | payer MEDICARE, SELFPAY | PROVIDERS: PCP Family Medicine; Visit Provider Physician Assistant | DX: M12.811 Other specific arthropathies, not elsewhere classified, right shoulder (principal) | CPT/HCPCS: 20610; 99213; J3301; J9999 ==